=== PATIENT | male | born 1950 | race Caucasian/White ===

== ENCOUNTER 2017-03-30 07:18 | Emergency (ER) | payer OTHER, MEDICARE ==
[~2017-03-30] VITALS: Ht 165.1 cm; Wt 86.2 kg
[~2017-03-30 07:18] MED LIST: ALBUTEROL0.09 MG/A1 INH; ASPIRIN CHILDRE81 MG PO; ATORVASTATIN CA10 MG PO; CIPRO500 M1 PO; CLOPIDOGREL75 MG PO; DILAUDID2 MG PO; ECOTRIN81 MG PO; HYDROXYCHLOROQ200 M1 PO; IMIPRAMINE HCL50 MG PO; LISINOPRIL10 MG PO; LORAZEPAM2 MG PO; MEDROL; METFORMIN HCL1000 MG PO; METOPROLOL TART50 MG PO; NASONEX0.05 MG/Ac NASB; NEXIUM20 M1 PO; NEXIUM20 MG PO; NITROSTAT0.4 MG PO; OMEPRAZOLE40 MG PO; PERCOCET 325 MG1 TAB PO; RAPAFLO8 MG PO
[2017-03-30 07:22] VITALS: BP 133/79
--- NOTE | 2017-03-30 07:58 | ED GI/GU/ABDOMINAL COMPLAINT ---
History of Present Illness General Chief Complaint: Male Genitourinary Problems Stated Complaint: FEVER, FREQUENT URINATION Source: patient, old records Exam Limitations: no limitations Vital Signs & Intake/Output Vital Signs & Intake/Output Vital Signs Date Time Temp Pulse Resp B/P B/P Pulse O2 O2 Flow FiO2 Mean Ox Delivery Rate 03/30 0722 96.8 86 18 133/79 97 Room Air Room Air Allergies Coded Allergies: NO KNOWN ALLERGIES (01/08/16) Reconcile Medications Aspirin (Ecotrin) 81 MG ECT 1 TAB PO QAM HEART HEALTH (Reported) Atorvastatin Calcium (Lipitor) 10 MG TABLET 1 TAB PO QPM CHOLESTEROL ( Reported) Esomeprazole Magnesium (Nexium) 20 MG CAPSULE.DR 1 CAP PO DAILY GI (Reported) Hydroxychloroquine Sulfate 200 MG TABLET 1 TAB PO BID ARTHRITIS (Reported) IMIPRAMINE HCL (Imipramine HCl) 50 MG TABLET 100 MG PO QPM ANXIETY (Reported) Lisinopril 10 MG TAB 1 TAB PO QAM BP (Reported) Lorazepam 2 MG TABLET 2 MG PO TID ANXIETY (Reported) METFORMIN HCL (Metformin HCl) 1,000 MG TABLET 1 TAB PO QPM DM (Reported) Methylprednisolone (Medrol) 32 MG TABLET FOR PAIN (Reported) Metoprolol Tartrate 50 MG TABLET 1 TAB PO BID HTN (Reported) Mometasone Furoate (Nasonex) 0.05 MG/Actuation SPR 1 SPRAY NASB PRN ALLERGIES (Reported) Nitroglycerin (Nitrostat) 0.4 MG TAB.SUBL 1 TAB PO AD PRN CHEST PAIN ( Reported) OXYCODONE HCL/ACETAMINOPHEN (Percocet 10-325 MG Tablet) 325 MG/10 MG TAB 1 TAB PO Q4-6 PRN PRN PAIN (Reported) Phenazopyridine HCl (Pyridium) 200 MG TABLET 1 TAB PO TID dysuria Silodosin (Rapaflo) 8 MG CAPSULE 1 CAP PO QPM BPH (Reported) Sulfamethoxazole/Trimethoprim (Bactrim Ds Tablet) 800 MG-160 MG TABLET 1 TAB PO BID prostatitis Triage Note: TRIAGE: 66 Y/O MALE PRESENTS C/O FEVER AT HOME AND URINARY FREQUENCY. REPORTS TYPICALLY SELF-CATHS ONCE A NIGHT. PREVIOUSLY, HAD BEEN SELF-CATHING 4 TIMES DAILY, THEN HAD DEPENDENCY ON THE CATHETER; FOLLOWED BY A TURP PROCEDURE. "NOW I THINK I HAVE AN INFECTION. I FEEL THE URGE TO GO. I HAVEN'T SELF-CATHETERIZED MYSELF IN A FEW NIGHTS. I CAN DO IT MYSELF, I DON'T WANT ANYONE TO DO IT." Triage Nurses Notes Reviewed? yes Onset: yesterday Duration: day(s):, intermittent Timing: recent history Quality/Severity: burning, mild Location: urethral Radiation: no radiation Activities at Onset: none Prior Abdominal Problems: similar symptoms Past Sexual History: Unobtainable at this time Modifying Factors: Worsens With: urinating. Associated Symptoms: dysuria HPI: 3 weeks prior to admission patient was treated for UTI with Cipro. He straight caths nightly when necessary. 1 day prior to admission he complained of dysuria chills low-grade temperature. He denies nausea vomiting diarrhea abdominal pain chest pain cough shortness of breath headache rash bleeding. Past History Travel History Traveled to [place] past 21 day No Medical History Any Pertinent Medical History? see below for history Neurological: SJOGREN'S SYNDROME EENT: NONE Cardiovascular: hyperlipidemia, NSTEMI, PERICARDITIS PVCS ANGIOPLAST WITH 1 STENT Respiratory: obstructive sleep apnea Gastrointestinal: NONE Hepatic: NONE Renal: HYPONATREMIA ENLARGED PROSTATE HAD TURP FEW MONTHS AGO Musculoskeletal: UMBILICAL HERNIA Psychiatric: anxiety Endocrine: diabetes, (TYPE 2 DM) Blood Disorders: NONE History of MRSA: No History of VRE: No History of CDIFF: No Pneumonia Vaccine: 10/30/16 Surgical History Surgical History: cholecystectomy, CARDIAC STENT, TURP Psychosocial History What is your primary language Nepali Tobacco Use: Never used ETOH Use: denies use Illicit Drug Use: denies illicit drug use Family History Family History, If Any: MOTHER Relation not specified for: FH: hypertension Hx Contributory? No Review of Systems Review of Systems Constitutional: Reports: see HPI, fever. EENTM: Reports: no symptoms. Respiratory: Reports: no symptoms. Cardiovascular: Reports: no symptoms. GI: Reports: no symptoms. Genitourinary: Reports: see HPI, dysuria, frequency, pain, urgency. Musculoskeletal: Reports: no symptoms. Skin: Reports: no symptoms. Neurological/Psychological: Reports: no symptoms. Hematologic/Endocrine: Reports: no symptoms. Immunologic/Allergic: Reports: no symptoms. All Other Systems: Reviewed and Negative Physical Exam Physical Exam General Appearance: well developed/nourished, alert, awake, anxious, mild distress, obese Head: atraumatic, normal appearance Eyes: Bilateral: normal appearance, PERRL, EOMI, normal inspection. Ears, Nose, Throat, Mouth: hearing grossly normal, moist mucous membrane Neck: normal inspection, supple, full range of motion, normal alignment Respiratory: normal breath sounds, chest non-tender, no respiratory distress, quiet respiration, lungs clear Cardiovascular: regular rate/rhythm, normal peripheral pulses, norml femoral pulses equa Peripheral Pulses: 4+ carotid (R), 4+ carotid (L) Gastrointestinal: normal bowel sounds, soft, non-tender, no organomegaly Male Genitals: normal genitalia Back: normal inspection, normal range of motion, no vertebral tenderness Extremities: normal range of motion, no ligament instability Neurologic/Psych: no motor/sensory deficits, awake, alert, oriented x 3 Skin: intact, normal color, warm/dry Core Measures ACS in differential dx? No Severe Sepsis Present: No Septic Shock Present: No Progress Differential Diagnosis: ureterolithiasis, urethritis, UTI/pyelo Plan of Care: Orders Procedure Date/time Status CULTURE,URINE 03/30 738 Active URINALYSIS 03/30 738 Complete Laboratory Tests 03/30/17 0808: Urinalysis LIGHT H, Urine Color YEL, Urine Clarity HAZY H, Urine pH 6.0, Ur Specific [place] 1.010, Urine Protein TRACE H, Urine Ketones NEG, Urine Nitrite NEG, Urine Bilirubin NEG, Urine Urobilinogen 0.2, Ur Leukocyte Esterase LARGE H , Ur Microscopic SEDIMENT EXAMINED, Urine RBC 3-5, Urine WBC > 75 H, Urine Bacteria MANY H, Urine Hemoglobin TRACE-INTACT H, Urine Glucose NEG Microbiology 03/30 808 URINE ROUT: Urine Culture - RECD Initial ED EKG: none Departure Departure Time of Disposition: 850 Disposition: HOME OR SELF CARE Condition: Stable Clinical Impression Primary Impression: Prostatitis syndrome Referrals: KRISTINA MILLER,CEFERINO FERNANDEZ MD,MINE Lew (PCP/Family) Departure Forms: Customer Survey General Discharge Information Prescriptions: Current Visit Scripts Sulfamethoxazole/Trimethoprim (Bactrim Ds Tablet) 1 TAB PO BID #42 TAB Phenazopyridine HCl (Pyridium) 1 TAB PO TID #9 TAB
[2017-03-30] MEDS ORDERED: BACTRIM DS TAB1 EACH PO (08:53)
[2017-03-30] MEDS ORDERED: PYRIDIUM200 M1 PO (08:54)
== END 2017-03-30 09:14 ==
LOC: ERH 07:18
DX: N41.9 Inflammatory disease of prostate, unspecified (principal)
CPT/HCPCS: 81001; 87086

== ENCOUNTER 2018-07-08 15:38 | Emergency (ER) | payer OTHER, MEDICARE ==
[~2018-07-08 15:38] MED LIST changes: +BACTRIM DS TAB1 EACH PO; +PYRIDIUM200 M1 PO
[2018-07-08 16:21] LABS: ABSOLUTE BASOPHIL COUNT 0 /CUMM (0.0-0.2); ABSOLUTE EOSINOPHIL COUNT 0.2 /CUMM (0.0-0.7); ABSOLUTE GRANULOCYTE CT 2.4 /CUMM (1.4-6.5); ABSOLUTE MONOCYTE COUNT 0.7 /CUMM (0.10-0.60); BASOPHIL % 0.8 % (0.0-2.0); EOSINOPHIL % 3.6 % (0-5); GRANULOCYTE % 55.7 % (42.2-75.2); MEAN CORPUSCULAR HGB 27.4 PG (27.0-31.0); MEAN CORPUSCULAR HGB CONC 33.2 G/DL (33.0-37.0); MEAN CORPUSCULAR VOLUME 82.5 FL (80.0-94.0); MEAN PLATELET VOLUME 7.1 FL (7.4-10.4); PLATELET COUNT 338 /CUMM (130-400); RBC DISTRIBUTION WIDTH 17.9 % (11.5-14.5); RED BLOOD CELL CT 4.24 /CUMM (4.70-6.10); WHITE BLOOD CELL COUNT 4.4 /CUMM (4.8-10.8)
--- NOTE | 2018-07-08 19:21 | ED GENERAL ADULT ---
History of Present Illness General Chief Complaint: General Adult Stated Complaint: LOW SODIUM Source: patient, family Exam Limitations: no limitations Vital Signs & Intake/Output Vital Signs & Intake/Output ED Intake and Output 07/09 0000 07/08 1200 Intake Total Output Total Balance Patient 200 lb Weight Weight Reported by Patient Measurement Method Allergies Coded Allergies: NO KNOWN ALLERGIES (01/08/16) Reconcile Medications Aspirin (Ecotrin) 81 MG ECT 1 TAB PO QAM HEART HEALTH (Reported) Atorvastatin Calcium (Lipitor) 10 MG TABLET 1 TAB PO QPM CHOLESTEROL ( Reported) Esomeprazole Magnesium (Nexium) 20 MG CAPSULE.DR 1 CAP PO DAILY GI (Reported) Hydroxychloroquine Sulfate 200 MG TABLET 1 TAB PO BID ARTHRITIS (Reported) IMIPRAMINE HCL (Imipramine HCl) 50 MG TABLET 100 MG PO QPM ANXIETY (Reported) Lisinopril 10 MG TAB 1 TAB PO QAM BP (Reported) Lorazepam 2 MG TABLET 2 MG PO TID ANXIETY (Reported) Meclizine HCl 25 MG TABLET 1 TAB PO TIDPRN PRN dizziness METFORMIN HCL (Metformin HCl) 1,000 MG TABLET 1 TAB PO QPM DM (Reported) Methylprednisolone (Medrol) 32 MG TABLET FOR PAIN (Reported) Metoprolol Tartrate 50 MG TABLET 1 TAB PO BID HTN (Reported) Mometasone Furoate (Nasonex) 0.05 MG/Actuation SPR 1 SPRAY NASB PRN ALLERGIES (Reported) Nitroglycerin (Nitrostat) 0.4 MG TAB.SUBL 1 TAB PO AD PRN CHEST PAIN ( Reported) OXYCODONE HCL/ACETAMINOPHEN (Percocet 10-325 MG Tablet) 325 MG/10 MG TAB 1 TAB PO Q4-6 PRN PRN PAIN (Reported) Phenazopyridine HCl (Pyridium) 200 MG TABLET 1 TAB PO TID dysuria Scopolamine (Transderm-Scop) 1 MG/3 DAY PATCH.TD.3 1 PAT TD Q3D PRN dizziness Silodosin (Rapaflo) 8 MG CAPSULE 1 CAP PO QPM BPH (Reported) Sulfamethoxazole/Trimethoprim (Bactrim Ds Tablet) 800 MG-160 MG TABLET 1 TAB PO BID prostatitis Triage Note: PT REFERRED TO ED BY PUBLIC RELATIONS DIRECTOR IN [facility] FOR EVAL OF LOW SODIUM LEVEL 123. PER CALL IN, MONA VILLAGOMEZ, STATES SUSPECTED SIADH. ENDORSES DIZZINESS AND LIGHTHEADEDNESS. PER , SEEMS SLIGHTLY CONFUSED. MONA STATES PTS SODIUM LEVEL IS 131-132 AT BASELINE. Triage Nurses Notes Reviewed? yes Onset: Gradual Duration: day(s): Timing: recent history Injury Environment: home HPI: 67yo male with PMH of hyponatremia, Sjogren's, DM, hyperlipidemia, CAD s/p stent placement sent in by heel wheeler for hyponatremia. Pt had CMP done yesterday which showed a sodium of 123 and potassium of 5.4. Pt told to come into ED to correct electrolytes and restrict fluids. Patient has been followed by heel wheeler for 2 and half years due to chronically low sodium levels, his baseline is 129-131. Today, pt woke up in normal state of health. Pt reports dizziness and lightheadedness which are worse with positional changes including standing up from sitting/lying down. Pt only urinated twice today d/t the restricted fluid intake. Denies any nausea, vomitting, fevers, chills. (Julia Brand) Past History Travel History Traveled to [place] past 21 day No Medical History Any Pertinent Medical History? see below for history Neurological: SJOGREN'S SYNDROME EENT: NONE Cardiovascular: hyperlipidemia, NSTEMI, PERICARDITIS PVCS ANGIOPLAST WITH 1 STENT Respiratory: obstructive sleep apnea Gastrointestinal: NONE Hepatic: NONE Renal: HYPONATREMIA ENLARGED PROSTATE HAD TURP FEW MONTHS AGO Musculoskeletal: UMBILICAL HERNIA Psychiatric: anxiety Endocrine: diabetes, (TYPE 2 DM) Blood Disorders: NONE History of MRSA: No History of VRE: No History of CDIFF: No Surgical History Surgical History: cholecystectomy, CARDIAC STENT, TURP Psychosocial History What is your primary language Mohawk Tobacco Use: Quit >30 days ago Family History Family History, If Any: MOTHER Relation not specified for: FH: hypertension Hx Contributory? No (Julia Brand) Review of Systems Review of Systems Constitutional: Reports: no symptoms. EENTM: Reports: no symptoms. Respiratory: Reports: no symptoms. Cardiovascular: Reports: no symptoms. GI: Reports: no symptoms. Genitourinary: Reports: no symptoms. Musculoskeletal: Reports: no symptoms. Skin: Reports: no symptoms. Neurological/Psychological: Reports: see HPI. Hematologic/Endocrine: Reports: no symptoms. Immunologic/Allergic: Reports: no symptoms. All Other Systems: Reviewed and Negative (Julia Brand) Physical Exam Physical Exam General Appearance: well developed/nourished, no apparent distress, alert, awake Head: atraumatic, normal appearance Eyes: Bilateral: normal appearance, PERRL, EOMI. 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 No CVA/TIA Diagnosis: No Sepsis Present: No Sepsis Focused Exam Completed? No (Autumn DUNN,Julia Birmingham) Progress Differential Diagnoses I considered the following diagnoses in my evaluation of the patient: [ Hyponatremia, hyperkalemia, SIADH, diabetes insipidus, vertigo] Plan of Care: Orders Procedure Date/time Status COMPREHENSIVE METABOLIC PANEL 07/08 154 Complete CBC WITHOUT DIFFERENTIAL 07/08 154 Complete EKG 07/08 154 Active Laboratory Tests 07/08/18 1556: Anion Gap 14, Estimated GFR > 60, BUN/Creatinine Ratio 15.0, Glucose 131 H, Calcium 8.9, Total Bilirubin 0.4, AST 74 H, ALT 72, Alkaline Phosphatase 86, Total Protein 8.1, Albumin 4.3, Globulin 3.8, Albumin/Globulin Ratio 1.1, CBC w Diff NO MAN DIFF REQ, RBC 4.24 L, MCV 82.5, MCH 27.4, MCHC 33.2, RDW 17.9 H, MPV 7.1 L, Gran % 55.7, Lymphocytes % 23.5, Monocytes % 16.4 H, Eosinophils % 3.6, Basophils % 0.8, Absolute Granulocytes 2.4, Absolute Lymphocytes 1.0 L, Absolute Monocytes 0.7 H, Absolute Eosinophils 0.2, Absolute Basophils 0 07/08/18 154: Urine Color Cancelled, Urine Clarity Cancelled, Urine pH Cancelled, Ur Specific [place] Cancelled, Urine Protein Cancelled, Urine Ketones Cancelled, Urine Nitrite Cancelled, Urine Bilirubin Cancelled, Urine Urobilinogen Cancelled, Ur Leukocyte Esterase Cancelled, Ur Microscopic Cancelled, Urine Hemoglobin Cancelled, Urine Glucose Cancelled Patient has gone through extensive work up with his heel wheeler including head MRI which was normal. Currently in the emergency department at this time patient's sodium level has improved to 129 which is around his baseline sodium level. His potassium has also stabilized and is now within normal limits. Patient has positional dizziness however when he sits in stretcher here in the emergency department he feels comfortable, no intractable dizziness or nystagmus. Patient is unable to give urine sample due to his fluid restriction today. All findings were discussed with Dr. Chacon. We'll continue to restrict patient's fluid to 2 L per day. Patient instructed to avoid foods that contain significant water volume. He will have his electrolytes rechecked with his specialist this week. Patient prescribed meclizine and scopolamine for positional dizziness. He was given strict return precautions which she understands and agrees with. Patient ambulatory with steady gait and without difficulty leaving the emergency department. Initial ED EKG: sinus rhythm @69bpm, nonspecific ST changes Prior EKG: unchanged (11/22/16) (Autumn DUNN,Julia Birmingham) Departure Departure Disposition: HOME OR SELF CARE Condition: Stable Clinical Impression Primary Impression: Hyponatremia Secondary Impressions: Dizziness Referrals: Claudia MILLER,Ella Lew (PCP/Family) Additional Instructions: Begin meclizine and scopolamine for dizziness. Continue to limit water intake to 1-2 cups of water per day. Follow-up with your primary care doctor for repeat labs later this week. Return if worsening symptoms or concerns. Please note that there might be incidental findings in your evaluation that are unrelated to the current emergency department visit. Please notify your primary care doctor about this emergency department visit in order to obtain and review all of the testing performed so that these incidental findings can be monitored as needed. If you had an x-ray performed, please understand that some fractures may not be seen on the initial set of x-rays. If your symptoms persist you might need a repeat set of x-rays to check for such a fracture. If you had a laceration evaluated, please understand that foreign bodies such as glass or wood may not be visible to the naked eye or on plain x-rays. If the wound becomes red, swollen, increasingly more painful or if there is any drainage from the wound, please have it reevaluated by a physician for the possibility of a retained foreign body. If you're unable to follow up as outlined in the discharge instructions please return to the emergency department. Thank you for choosing the [facility] Emergency Department for your care. It was a pleasure to serve you today. Departure Forms: Customer Survey General Discharge Information Prescriptions: Current Visit Scripts Meclizine HCl 1 TAB PO TIDPRN PRN dizziness #30 TAB Scopolamine (Transderm-Scop) 1 PAT TD Q3D PRN dizziness #10 PAT (Autumn DUNN,Julia Birmingham) PA/PROCUREMENT ANALYST Co-Sign Statement Statement: ED Attending supervision documentation- x I saw and evaluated the patient. I have also reviewed all the pertinent lab results and diagnostic results. I agree with the findings and the plan of care as documented in the PA's/PROCUREMENT ANALYST's documentation. [] I have reviewed the ED Record and agree with the PA's/PROCUREMENT ANALYST's documentation. [] Additions or exceptions (if any) to the PAs/PROCUREMENT ANALYST's note and plan are summarized below: [] (Ines MILLER,Al) Critical Care Note Critical Care Note Critical Care Time: non-applicable (Julia Brand)
[2018-07-08 19:52] VITALS: BP 118/74
[2018-07-08] MEDS ORDERED: MECLIZINE HCL25 MG PO (20:27)
[2018-07-08] MEDS ORDERED: TRANSDERM-SCOP1 EAC1 TD (20:27)
== END 2018-07-08 21:05 ==
LOC: ERH 15:38
PROVIDERS: Physician Assistant Medical
DX: E87.1 Hypo-osmolality and hyponatremia (principal); R42 Dizziness and giddiness
CPT/HCPCS: 93005; 93010